=== PATIENT | male | born 1990 | race Caucasian/White ===

== ENCOUNTER 2017-03-19 09:54 | Emergency (ER) | payer SELFPAY ==
[~2017-03-19] VITALS: Ht 182.9 cm; Wt 83.9 kg
[2017-03-19 09:54] VITALS: BP 127/80
[2017-03-19] MEDS ORDERED: ACETAMINOPHEN ES 500 MG TABLET ONE (10:18)
[2017-03-19] MEDS ORDERED: IBUPROFEN 600 MG TABLET PO ONE ×2 (10:19→10:30)
[2017-03-19] MEDS ORDERED: ACETAMINOPHEN ES 500 MG TABLET PO ONE (10:30)
== END 2017-03-19 11:07 | disposition home or self-care (01) ==
LOC: ER 09:56
DX: S29.012A Strain of muscle and tendon of back wall of thorax, initial encounter (principal); F12.90 Cannabis use, unspecified, uncomplicated; J45.909 Unspecified asthma, uncomplicated; J84.10 Pulmonary fibrosis, unspecified; F17.210 Nicotine dependence, cigarettes, uncomplicated; X58.XXXA Exposure to other specified factors, initial encounter; Y92.89 Other specified places as the place of occurrence of the external cause; Y93.89 Activity, other specified; Y99.8 Other external cause status
CPT/HCPCS: 71010; 99283; 99406; A4606; Z7610